=== PATIENT | female | born 1970 | race Caucasian/White ===

== ENCOUNTER 2017-11-15 11:28 | Emergency (ER) | payer BC, OTHER ==
[~2017-11-15] VITALS: Ht 162.6 cm; Wt 79.4 kg
--- NOTE | 2017-11-15 12:38 | Diagnostic Imaging Report ---
INDICATION: Twisting injury. Left ankle pain Three views of the left ankle show no fracture, dislocation or other acute bony abnormality. There is a small round corticated bony density inferior to the medial malleolus which is not an acute avulsion fracture and may be residual of old injury or secondary ossification center. The ankle joint is not widened. IMPRESSION: No acute abnormality is seen. Dictated by: Dictated on workstation # [id number]
--- NOTE | 2017-11-15 12:38 | Diagnostic Imaging Report ---
INDICATION: Twisting injury. Left foot pain 3 views of the left foot shows no fracture, dislocation or other acute bony abnormality. There are degenerative changes with joint space narrowing and hypertrophic spurring at the metatarsal phalangeal joint of the first digit. IMPRESSION: No acute abnormality is seen. Dictated by: Dictated on workstation # [id number]
--- NOTE | 2017-11-15 12:52 | ED Lower Extremity ---
General Chief Complaint: Lower Extremity Stated Complaint: L ANKLE PAIN/ "BROKE" Nursing Triage Note: PT CO OF L ANKLE PAIN STEPPED ON HOLE Nursing Sepsis Screen: No Definite Risk Source: patient, family (daughter) Exam Limitations: no limitations History of Present Illness Date Seen by Provider: Nov 15, 2017 Time Seen by Provider: 12:40 Initial Comments 47-year-old female patient presents to the emergency department with complaints of left ankle pain and foot pain after stepping in a hole and twisted the ankle. Onset: this morning Pain/Injury Location: left foot, left ankle Method of Injury: twisted Modifying Factors: Improves With Immobilization, Worse With Movement Allergies and Home Medications Allergies Coded Allergies: No Known Drug Allergies (Unverified Allergy, Unknown, 04/08/09) Home Medications Naproxen 500 Mg Tablet, 500 MG PO BID Prescribed by: JOSE GONZALEZ on 11/15/17 1309 Patient Home Medication List Home Medication List Reviewed: Yes Constitutional: no symptoms reported Respiratory: no symptoms reported Cardiovascular: no symptoms reported Musculoskeletal: see HPI, No back pain, joint pain (Left ankle pain), joint swelling (Left ankle swelling), No neck pain Skin: no symptoms reported Psychiatric/Neurological: No Symptoms Reported All Other Systems Reviewed Negative Unless Noted: Yes (Negative excepted noted.) Past Dyuatef-Fljexy-Yrjbvd Hx Patient Social History Alcohol Use: Occasionally Uses Recreational Drug Use: No Smoking Status: Never a Smoker Recent Foreign Travel: No Contact w/Someone Who Travel: No Recent Infectious Disease Expo: No Recent Hopitalizations: No Physical Abuse: No Sexual Abuse: No Surgeries History of Surgeries: Yes (c section x 2,thyroidectomy. Iand D right thumb) Respiratory History of Respiratory Disorde: Yes Cardiovascular History of Cardiac Disorders: No Neurological History of Neurological Disord: No Reproductive System Hx Reproductive Disorders: No (c section x 2 hx endometreosis) Gastrointestinal History of Gastrointestinal Di: No Musculoskeletal History of Musculoskeletal Dis: No Endocrine History of Endocrine Disorders: Yes Psychosocial History of Psychiatric Problem: Yes Suicide Risk Score: 0 Blood Transfusions History of Blood Disorders: No Reviewed Nursing Assessment Reviewed/Agree w Nursing PMH: Yes Family Medical History Significant Family History: No Pertinent Family Hx Physical Exam Vital Signs Vital Signs - First Documented 11/15/17 11:50 Temp 97.1 Pulse 88 Resp 16 B/P (MAP) 133/92 (106) Pulse Ox 99 Capillary Refill : Less Than 3 Seconds General Appearance: WD/WN, no apparent distress Cardiovascular: normal peripheral pulses, no edema Legs: bilateral leg non-tender, bilateral leg normal inspection, bilateral leg normal range of motion, bilateral leg no evidence of injury Knees: bilateral knee non-tender, bilateral knee normal inspection, bilateral knee normal range of motion, bilateral knee no evidence of injury Ankles: right ankle non-tender, right ankle normal inspection, right ankle normal range of motion, right ankle no evidence of injury, left ankle bone tenderness (Medial malleolus tenderness), left ankle ecchymosis (Ecchymosis noted inferior to the medial malleolus), left ankle limited range of motion, left ankle pain, left ankle soft tissue tenderness, left ankle swelling ( Swelling noted inferior to the medial malleolus) Feet: right foot non-tender, bilateral foot normal inspection, bilateral foot normal range of motion, bilateral foot no evidence of injury, left foot bone tenderness (Proximal left foot tenderness), left foot pain, left foot soft tissue tenderness (Proximal left foot tenderness) Neurologic/Tendon: normal sensation, normal motor functions, normal tendon functions, responds to pain, no evidence tendon injury Neurologic/Psychiatric: no motor/sensory deficits, alert, normal mood/affect, oriented x 3 Skin: normal color, warm/dry, ecchymosis (Mild ecchymosis inferior to the medial left malleolus.) Progress/Results/Core Measures Results/Orders My Orders Orders - JOSE GONZALEZ Foot, Left, 3 Views (11/15/17 11:49) Ankle, Left, 3 Views (11/15/17 11:49) Air Strup Ankle Brace (11/15/17 12:52) Hydrocodone/Apap 5/325 Tablet (Lortab 5 (11/15/17 13:23) Vital Signs/I&O Vital Sign - Last 12Hours 11/15/17 11/15/17 11:50 13:27 Temp 97.1 97.1 Pulse 88 88 Resp 16 16 B/P (MAP) 133/92 (106) 133/92 (106) Pulse Ox 99 99 Blood Pressure Mean: 106 Diagnostic Imaging Diagonstic Imaging: Xray Plain Films/CT/US/NM/MRI: ankle Comments INDICATION: Twisting injury. Left ankle pain Three views of the left ankle show no fracture, dislocation or other acute bony abnormality. There is a small round corticated bony density inferior to the medial malleolus which is not an acute avulsion fracture and may be residual of old injury or secondary ossification center. The ankle joint is not widened. IMPRESSION: No acute abnormality is seen. Dictated by: Dictated on workstation # [id number] Reviewed: Reviewed by Me (radiology report reviewed by me) Diagonstic Imaging: Xray Plain Films/CT/US/NM/MRI: other (foot) Comments FOOT, LEFT, 3 VIEWS INDICATION: Twisting injury. Left foot pain 3 views of the left foot shows no fracture, dislocation or other acute bony abnormality. There are degenerative changes with joint space narrowing and hypertrophic spurring at the metatarsal phalangeal joint of the first digit. IMPRESSION: No acute abnormality is seen. Dictated by: Dictated on workstation # [id number] Reviewed: Reviewed by Me (radiology report reviewed by me) Departure Communication (Admissions) Progress Notes diagnostic findings discussed with the patient. patient does have her own crutches. patient wrapped with an haroldo wrap and placed in a stirrup brace. Impression Impression: Primary Impression: Ankle sprain Qualified Codes: S93.402A - Sprain of unspecified ligament of left ankle, initial encounter Disposition: HOME, SELF-CARE Condition: Improved Departure-Patient Inst. Decision time for Depature: 12:51 Referrals: SARAH ALTAMIRANO MD (PCP/Family) Primary Care Physician Patient Instructions: Ankle Sprain (DC) Add. Discharge Instructions: All discharge instructions reviewed with patient and/or family. Voiced understanding. Tylenol extra strength [id number]-[id number]-[id number] as directed for pain. Ibuprofen 8 mg by mouth every 8 hours as needed for pain. Elevate the ankle on pillows. Ice pack for 20 minute intervals as needed for pain and swelling. Haroldo wrap and stirrup brace as instructed. You may use crutches if needed for assistance with ambulation. Follow-up with your family practitioner if no improvement in symptoms in 7-10 days for recheck and possible need for repeat x- ray versus MRI. Call for appointment time if needed. Return to the emergency department for worsened symptoms or any other concerns. Scripts Naproxen (Naprosyn) 500 Mg Tablet 500 MG PO BID, #20 TAB 0 Refills Prov: JOSE GONZALEZ 11/15/17 JOSE GONZALEZ Nov 15, 2017 12:52
[2017-11-15] MEDS ORDERED: NAPR-1071 PO (13:09)
[2017-11-15] MEDS ORDERED: HYDROcodone/APAP 5 MG/325 MG (LORTAB) TAB PO STA (13:23)
[2017-11-15 13:27] VITALS: BP 133/92
== END 2017-11-15 13:27 | disposition home or self-care (01) ==
LOC: EDUNIT# 11:28 → ER 11:30
DX: S93.402A Sprain of unspecified ligament of left ankle, initial encounter (principal); Z87.59 Personal history of other complications of pregnancy, childbirth and the puerperium; W17.2XXA Fall into hole, initial encounter; X50.1XXA Overexertion from prolonged static or awkward postures, initial encounter
CPT/HCPCS: 73610; 73630

== ENCOUNTER → 2018-06-07 | Outpatient (CLI) | payer OTHER ==
[~2018-06-07] MED LIST: NAPR-1071 PO
--- NOTE | 2018-06-08 14:36 | Diagnostic Imaging Report ---
INDICATION: Routine screening. COMPARISON: 03/02/2017 and 03/29/2015. TECHNIQUE: 2D and 3D bilateral screening mammography was performed with CAD. FINDINGS: Scattered fibroglandular densities are identified bilaterally. The parenchymal pattern is stable. No mass or malignant appearing microcalcifications are seen. The axillae are unremarkable. IMPRESSION: No mammographic features suspicious for malignancy are identified. ACR BI-RADS Category 1: Negative. Result letter will be mailed to the patient. Note: At least 10% of breast cancer is not imaged by mammography. Dictated by: Dictated on workstation # [id number]
== END ==
LOC: RAD 14:56
PROVIDERS: ATTEND Nurse Practitioner Family
DX: Z12.31 Encounter for screening mammogram for malignant neoplasm of breast (principal)
CPT/HCPCS: 77067

== ENCOUNTER → 2022-05-16 | Outpatient (CLI) | payer BC, OTHER ==
--- NOTE | 2022-05-16 15:13 | Diagnostic Imaging Report ---
Indication: Routine screening. Comparison is made with prior mammograms 06/07/2018 and 03/02/2017. 2-D and 3-D bilateral screening mammography was performed with CAD. Both breasts are heterogeneously dense, limiting the sensitivity of mammography. No mass or malignant-appearing microcalcifications are seen. Axillae are unremarkable. IMPRESSION: BI-RADS Category 1 No mammographic features suspicious for malignancy are identified. ACR BI-RADS Category 1: Negative. Result letter will be mailed to the patient. Note: At least 10% of breast cancer is not imaged by mammography. Dictated by: Dictated on workstation # [id number]
== END ==
LOC: RAD 10:13
PROVIDERS: ATTEND Pediatrics
DX: Z12.31 Encounter for screening mammogram for malignant neoplasm of breast (principal)
CPT/HCPCS: 77063; 77067

== ENCOUNTER 2022-10-27 05:31 | Outpatient (CLI) | payer BC ==
[~2022-10-27] VITALS: Ht 162.6 cm; Wt 84.1 kg
[2022-10-29] MEDS ORDERED: ESTR0.3T PO (09:44)
[2022-10-29] MEDS ORDERED: DULO60CA59 PO (09:44)
[2022-10-29] MEDS ORDERED: PANT40GR PO (09:44)
== END 2022-10-30 08:37 | disposition home or self-care (01) ==
LOC: PREOP 05:31
PROVIDERS: ATTEND Podiatrist Foot & Ankle Surgery
DX: Z01.818 Encounter for other preprocedural examination (principal)

== ENCOUNTER 2022-11-03 06:04 | Day surgery (SDC) | payer BC ==
[2022-11-03] VITALS (10 sets, daily range): BP systolic 108–152; BP diastolic 75–95
[~2022-11-03] VITALS: Ht 163 cm; Wt 84.1 kg
[~2022-11-03 06:04] MED LIST changes: +DULO60CA59 PO; +ESTR0.3T PO; +PANT40GR PO
[2022-11-03] MEDS ORDERED: LACTATED RINGERS 1,000 ML IV PRN (06:15)
[2022-11-03] MEDS ORDERED: ceFAZolin INJECTION 1,000 MG in NS (IVPB) 50 ML IV ONE (06:15)
[2022-11-03] MEDS ORDERED: LIDOCAINE PF 2% 5 ML (XYLOCAINE) VIAL ONE (07:12)
[2022-11-03] MEDS ORDERED: ONDANSETRON 4 MG/2 ML (SDV) Z0FRAN ONE (07:12)
[2022-11-03] MEDS ORDERED: fentaNYL INJ 100 MCG/2 ML AMP ONE (07:12)
[2022-11-03] MEDS ORDERED: proPOfol 200 MG/20 ML (DIPRIVAN) VIAL IV ONE (07:12)
[2022-11-03] MEDS ORDERED: MIDAZOLAM 2 MG/2 ML (VERSED) VIAL ONE (07:13)
[2022-11-03] MEDS ORDERED: LIDOCAINE 1% INJ 20 ML VIAL ONE (07:14)
[2022-11-03] MEDS ORDERED: BUPIVACAINE 0.5% 30 ML (SENSORCAINE) VIAL ONE (07:14)
--- NOTE | 2022-11-03 07:40 | Progress Note-Pre Operative ---
Pre-Operative Progress Note Date of Available H&P: Nov 03, 2022 Date H&P Reviewed: Nov 03, 2022 Time H&P Reviewed: 07:39 Pre-Operative Diagnosis: Hallux Valgus, left MARTA NI DPM Nov 03, 2022 07:39
[2022-11-03] MEDS ORDERED: BUPIVACAINE 0.5% 30 ML (SENSORCAINE) VIAL INJ ONE (09:02)
[2022-11-03] MEDS ORDERED: SEVOFLURANE (ULTANE) 15 ML INHAL SOLN ONE (09:21)
--- NOTE | 2022-11-03 09:29 | Progress Note-Post Operative ---
Post-Operative Progess Note Surgeon (s)/Flaking Roll Operator (s) Surgeon MARTA NI DPM Flaking Roll Operator: none Pre-Operative Diagnosis Hallux Valgus, left Post-Operative Diagnosis Same with DJD of the left 1st metatarsophalangeal joint Procedure & Operative Findings Date of Procedure 11/03/22 Procedure Performed/Findings Modified Mitch-Ashkan bunionectomy, left Anesthesia Type General Estimated Blood Loss Estimated blood loss (mL): Minimal Specimens/Packing Specimens Removed none MARTA NI DPM Nov 03, 2022 09:29
[2022-11-03] MEDS ORDERED: ONDANSETRON 4 MG/2 ML (SDV) Z0FRAN IVP PRN (09:30)
[2022-11-03] MEDS ORDERED: LACTATED RINGERS 1,000 ML IV SCH (09:30)
[2022-11-03] MEDS ORDERED: morphine INJ 10 MG/ML 1ML (SYR OR VIAL) IVP ONE (09:30)
[2022-11-03] MEDS ORDERED: MEPERIDINE (DEMEROL) INJ 50 MG/ML IVP ONE (09:30)
[2022-11-03] MEDS ORDERED: HYDROcodone/APAP 5 MG/325 MG (LORTAB) TAB PO PRN (09:30)
--- NOTE | 2022-11-03 09:30 | Anesthesia-General Post-Op ---
General Patient Condition Mental Status/LOC: Same as Preop Cardiovascular: Satisfactory Nausea/Vomiting: Absent Respiratory: Satisfactory Pain: Controlled Complications: Absent Post Op Complications Complications None Follow Up Care/Instructions Patient Instructions None needed. Anesthesia/Patient Condition Patient Condition Patient is doing well, no complaints, stable vital signs, no apparent adverse anesthesia problems. No complications reported per nursing. MOHAN CHAO CRNA Nov 03, 2022 09:30
[2022-11-03] MEDS ORDERED: CEPH500C PO (09:34)
[2022-11-03] MEDS ORDERED: OXYC1TAB11 PO (09:34)
--- NOTE | 2022-11-03 14:09 | Diagnostic Imaging Report ---
EXAMINATION: Left foot radiographs, 2 views. COMPARISON: November 15, 2017. HISTORY: 52-year-old female, postoperative evaluation of the left foot. FINDINGS: There are osteotomy changes of the first metatarsal and first proximal phalanx. There is a fixation pin at the level of the first metatarsal which is intact and metallic fixation wire at the level of the first proximal phalanx. There is adjacent soft tissue gas which may reflect recent postoperative state of the patient. Recommend correlation. There is severe joint space loss of the first metatarsophalangeal joint. 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 The additional joint spaces are well preserved. There is no identified bone erosion. There is a calcaneal heel spur. IMPRESSION: 1. Postoperative changes of the first digit without identified complication. 2. Soft tissue gas near the level of postoperative change most likely reflecting recent postoperative state although correlation with timing of surgery is needed. Dictated by: Dictated on workstation # [id number]
--- NOTE | 2022-11-03 14:53 | OPERATIVE REPORT ---
DATE OF SERVICE: 11/03/2022 SURGEON: Marta Ni DPM. 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 POSTOPERATIVE DIAGNOSES: 1. 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 2. Degenerative joint disease, left first metatarsophalangeal joint. PROCEDURE: Modified Mitch-Ashkan bunionectomy, left. WOUND CLASS: Clean. ANESTHESIA: General. HEMOSTASIS: Pneumatic thigh tourniquet at 250 mmHg. INDICATIONS: This 52-year-old female presents complaining of a painful left foot. Conservative therapy is met with unsatisfactory results and the patient is agreeable to surgical intervention after risks and complications were discussed at length. No guarantees were extended to the patient and she is willing to proceed. PROCEDURE IN DETAIL: The patient was brought back to the operating table and placed in secure supine position. General anesthetic was then induced. Pneumatic thigh tourniquet was placed on the left lower extremity over several layers padding. The left foot was then prepped and draped in the normal sterile manner. The left foot was then elevated and allowed to exsanguinate after which the tourniquet was inflated to 250 mmHg. Attention was then directed to the dorsal aspect of the left first ray where an 8 cm longitudinal linear incision was created from the dorsal aspect of the first metatarsal cuneiform joint down to the interphalangeal joint of the hallux. The incision was deepened in the same plane with great care to identify and retract all vital neurovascular structures. Only necessary blood vessels were cauterized as encountered. Reason for the length of the incision was the intent was to do a Lapidus type bunionectomy. However, when I dissected through the soft tissue down to the first metatarsophalangeal joint, there was a considerable amount of destruction noted to the articular cartilage to the first metatarsophalangeal joint. It was then decided that the majority of her discomfort was obviously coming from the first metatarsophalangeal joint and seeing that there was no obvious elevation to the first metatarsal on the lateral x-ray, it was then decided that an Mitch Ashkan bunionectomy would be in her best interest at this time. The dissection was carried out to the capsular tissue where a longitudinal capsulotomy was performed. The capsular tissue was reflected, demonstrating the hypertrophic medial eminence of the first metatarsal head, which was resected utilizing a power sagittal saw. Next, the dorsal spurring and lateral spurring to the first metatarsal head was resected and further contoured and smoothed with power bur. Dissection was carried out to the medial and lateral dorsal aspect of the base of the proximal phalanx of the hallux, after which a rongeur was utilized to further contour and smooth the base. Next, utilizing a 1 mm drill, fenestration was performed to the area of the first metatarsal head and base of the proximal phalanx devoid of articular cartilage, which was 75% approximately of the dorsal distal first metatarsal head and base and dorsal aspect of the proximal phalanx. The wound was flushed with copious amounts of normal saline. Utilizing a power sagittal saw, a Chevron type osteotomy was performed from medial to lateral, allowing the capital fragment to translocate from medial to lateral and fixated in its corrected position utilizing a 0.062 threaded K-wire, driven from dorsal proximal to plantar distal across the osteotomy. Excellent bony apposition and fixation was appreciated this time. The K-wire was cut flush with the dorsal aspect of the first metatarsal, further contoured and smoothing was performed utilizing a power bur to the osteotomy site as well as the head of the first metatarsal. Attention was then directed to the proximal phalanx where subperiosteal dissection was carried out to the diaphysis of the hallux proximal phalanx. An Ashkan type osteotomy was then performed with a power sagittal saw. A wedge of bone was resected with the base, medial and the lateral cortices held intact. After this, a commercial airline pilot hole was created to the dorsal medial aspect of the osteotomy and a 28-gauge monofilament wire was passed through this commercial airline pilot hole securing the osteotomy in a closed position. Excellent bony apposition and fixation was appreciated this time. A lateral release was performed to the lateral aspect of the first metatarsophalangeal joint. Blunt dissection was carried out after which a lateral capsulorrhaphy was performed as well as a release of the conjoined tendon of the adductor hallucis. The entirety of the wound was flushed after which closure was then performed in layers. Deep closure was performed with 3-0 Vicryl, superficial with 4-0 Vicryl, skin closed with 4-0 Prolene in a horizontal mattress type stitch. Postoperative injection consisted of 16 mL of 0.5% Marcaine injected in a local infusion to the surgical site. A 10 mg of dexamethasone was injected into the left first metatarsophalangeal joint area. Postoperative dressing consisted of Betadine-soaked Adaptic, sterile 4 x 4's, sterile Kerlix, all secured with a Coban wrap. The patient tolerated the anesthesia and procedure well and was transported from the operating room to the recovery area with vital signs stable and vascular status intact to all digits of the left foot. She is to follow up in my office in 10 days period of time or sooner if necessary. Prescription for Keflex and Percocet were dispensed. Job ID: [id number] DocumentID: [id number] Dictated Date: 11/03/2022 09:45:59 Automatic Cigar Wrapper Tender Date: 11/03/2022 14:51:00 Dictated By: MARTA NI DPM
== END 2022-11-03 11:33 | disposition home or self-care (01) ==
LOC: SDC 06:04
PROVIDERS: ATTEND Podiatrist Foot & Ankle Surgery
DX: M20.12 Hallux valgus (acquired), left foot (principal); M19.072 Primary osteoarthritis, left ankle and foot; K59.09 Other constipation; E66.9 Obesity, unspecified; Z87.891 Personal history of nicotine dependence; Z68.31 Body mass index [BMI] 31.0-31.9, adult
CPT/HCPCS: 28299; 73620; 87081; C1713